=== PATIENT | male | born 1950 | race Two or more races ===

== ENCOUNTER 2022-06-05 21:21 | Emergency (ER) | payer MEDICARE ==
[~2022-06-05] VITALS: Ht 175.3 cm; Wt 70.3 kg
--- NOTE | 2022-06-05 22:26 | NUR ---
being seen and examined by Dr. Olivo
[2022-06-05 22:57] LABS: *BILIRUBIN,URIN NEGATIVE (NEGATIVE); *BLOOD, URINE 1+ (NEGATIVE); *CLARITY,URINE CLEAR (CLEAR); *COLOR,URINE YELLOW (YELLOW); *KETONES,URINE NEGATIVE (NEGATIVE); LEUKOCYTE ESTERASE ,URINE NEGATIVE (NEGATIVE); NITRITE, URINE NEGATIVE (NEGATIVE); PH,URINE 6.5 (5.0-8.0); UGLUCOSE TRACE (NEGATIVE)
[2022-06-05 23:13] LABS: HEMATOCRIT 37.5 % (36.7-47.1); MEAN CORPUSCULAR HEMOGLOBIN 27.4 uug (23.8-33.4); MEAN CORPUSCULAR VOLUME 82.2 fL (73.0-96.2); PLATELET COUNT (AUTO) 162 K/uL (152-348)
[2022-06-05 23:20] LABS: POTASSIUM 3.7 mmol/L (3.5-5.1)
[2022-06-06] VITALS: BP 129/89
[2022-06-06 06:13] LABS: BACTERIA,URINE FEW /HPF (NONE SEEN); SQUAMOUS EPITHELIAL CELL,UR FEW /HPF (NONE SEEN)
== END 2022-06-06 00:02 | disposition home or self-care (01) ==
LOC: ER 21:21
DX: N40.1 Benign prostatic hyperplasia with lower urinary tract symptoms (principal); R33.8 Other retention of urine; E78.00 Pure hypercholesterolemia, unspecified
CPT/HCPCS: 36415; 51702; 85025